=== PATIENT | female | born 1995 | race African-American/Black ===

== ENCOUNTER 2017-01-19 10:18 | Emergency (ER) | payer MEDICAID ==
[~2017-01-19] VITALS: Ht 165.1 cm; Wt 109.0 kg
[2017-01-19] MEDS ORDERED: SODIUM CHLORIDE 0.9% 1,000 ML IV ONE ×2 (12:30→17:30)
[2017-01-19 12:58] LABS: BASOPHILS % 0.4 % (0.0-2.0); HEMATOCRIT. 37.8 % (36.0-48.0); HEMOGLOBIN. 12.4 g/dL (12.0-16.0); LYMPHOCYTES % 10.1 % (20.0-50.0); MEAN CORPUSCULAR VOLUME 91.1 fL (81.0-99.0); MEAN PLATELET VOLUME 10.7 fl (7.4-10.4); MONOCYTES % 2.3 % (2.0-8.0); NEUTROPHILS % 87.2 % (40.0-76.0); PLATELET 101 x1000/uL (130-400); RED BLOOD CELL COUNT 4.15 mill/uL (4.2-5.4); RED CELL DISTRIBUTION WIDTH 14.1 % (11.6-14.6)
[2017-01-19 13:09] LABS: B-HCG QUANTITATIVE < 1 mIU/mL (<3); CARBON DIOXIDE 23 mEq/L (21-32); CHLORIDE 106 mEq/L (98-107); ETHANOL BLOOD < 10 mg/dL
[2017-01-19 13:22] LABS: CLARITY URINE CLEAR (CLEAR); COLOR URINE YELLOW (YELLOW); GLUCOSE URINE NEGATIVE (NEGATIVE); KETONES URINE 3+ (NEGATIVE); LEUKOCYTE ESTERASE URINE NEGATIVE (NEGATIVE); NITRITE URINE NEGATIVE (NEGATIVE); OCCULT BLOOD URINE 3+ (NEGATIVE); PROTEIN URINE TRACE (NEGATIVE); SPECIFIC GRAVITY URINE 1.027 (1.005-1.030)
[2017-01-19] MEDS ORDERED: ONDANSETRON 4MG ODT PO ONE ×2 (13:30→17:30)
[2017-01-19 13:42] LABS: HEPATITIS B SURFACE ANTIGEN NEGATIVE
[2017-01-19 13:49] LABS: *AMPHETAMINES SCREEN URINE NEGATIVE (NEGATIVE); *BARBITURATES SCREEN URINE NEGATIVE (NEGATIVE); *BENZODIAZEPINES SCREEN URINE NEGATIVE (NEGATIVE); *COCAINE SCREEN URINE NEGATIVE (NEGATIVE); METHADONE URINE SCREEN NEGATIVE (NEGATIVE); OPIATES URINE SCREEN NEGATIVE (NEGATIVE); PHENCYCLIDINE URINE SCREEN NEGATIVE (NEGATIVE)
[2017-01-19 13:54] LABS: CANNABINOID URINE SCREEN PRESUMTIVE POSITIVE (NEGATIVE)
[2017-01-19 14:10] LABS: HEPATITIS B CORE AB IGM NEGATIVE
[2017-01-19 14:12] LABS: HEPATITIS A AB IGM NEGATIVE (NEGATIVE)
[2017-01-20 03:17] VITALS: BP 158/51
== END 2017-01-20 03:20 ==
LOC: ER 10:31
DX: T40.7X5A Adverse effect of cannabis (derivatives), initial encounter (principal); D69.6 Thrombocytopenia, unspecified; K76.0 Fatty (change of) liver, not elsewhere classified; R45.851 Suicidal ideations; R82.4 Acetonuria; R31.29 Other microscopic hematuria; R19.5 Other fecal abnormalities; R82.71 Bacteriuria; R31.9 Hematuria, unspecified; F41.9 Anxiety disorder, unspecified; N17.0 Acute kidney failure with tubular necrosis; F32.9 Major depressive disorder, single episode, unspecified; E86.0 Dehydration; R80.9 Proteinuria, unspecified; J45.909 Unspecified asthma, uncomplicated; F31.9 Bipolar disorder, unspecified; Y92.89 Other specified places as the place of occurrence of the external cause
CPT/HCPCS: 36415; 71010; 74176; 80053; 80305; 81001; 83036; 84702; 85025; 85651; 86592; 96360; 96361; 99285; G0482; J7030; Q0162; Z7610; 86705; 86709; 86803; 87340

== ENCOUNTER 2017-06-30 12:51 | Emergency (ER) | payer MEDICAID ==
[~2017-06-30] VITALS: Ht 172.7 cm; Wt 105.0 kg
[2017-06-30 12:53] VITALS: BP 105/56
== END 2017-06-30 16:54 | disposition left against medical advice (07) ==
LOC: ER 13:02
DX: R10.9 Unspecified abdominal pain (principal); Z53.21 Procedure and treatment not carried out due to patient leaving prior to being seen by health care provider